=== PATIENT | female | born 1960 | race African-American/Black ===

== ENCOUNTER 2017-12-11 10:28 | Emergency (ER) | payer OTHER ==
[~2017-12-11] VITALS: Ht 157.5 cm; Wt 49.9 kg
[2017-12-11] MEDS ORDERED: SYNTHROID88 MCG PO (10:42)
[2017-12-11] MEDS ORDERED: DEPAKOTE 250MG250 M1 PO (10:43)
[2017-12-11] MEDS ORDERED: KEPPRA1000 MG PO (10:43)
[2017-12-11] MEDS ORDERED: NORCO 5-325 TA1 EACH PO (13:09)
[2017-12-11 13:44] VITALS: BP 129/68
== END 2017-12-11 13:47 | disposition home or self-care (01) ==
LOC: ER 10:28
DX: S92.355A Nondisplaced fracture of fifth metatarsal bone, left foot, initial encounter for closed fracture (principal); G40.909 Epilepsy, unspecified, not intractable, without status epilepticus; F17.210 Nicotine dependence, cigarettes, uncomplicated; Z85.850 Personal history of malignant neoplasm of thyroid; Z86.73 Personal history of transient ischemic attack (TIA), and cerebral infarction without residual deficits; W18.40XA Slipping, tripping and stumbling without falling, unspecified, initial encounter; Y93.01 Activity, walking, marching and hiking; Y92.89 Other specified places as the place of occurrence of the external cause; Y99.8 Other external cause status